=== PATIENT | female | born 1965 | race Caucasian/White ===

== ENCOUNTER 2016-11-13 06:22 | Day surgery (SDC) | payer BC ==
[~2016-11-13 06:22] MED LIST: Lactated Ringers 1,000 ML IV SCH; Lidocaine 1%/Sod Bicarbonate in NS 8.4% 1 ML Syringe IV PRN; Sodium Chloride 0.9% 10 ML Syringe FLUSH PRN
[2016-11-13] MEDS ORDERED: Bupivacaine 0.25% 30 ML SDV ONE (07:04)
[2016-11-13] MEDS ORDERED: Lidocaine 1% 30 ML SDV ONE (07:04)
[2016-11-13 08:20] VITALS: BP 98/45
--- NOTE | 2016-11-16 22:12 | PCM.OPNOTE ---
- General Post-Op/Procedure Note Date of Surgery/Procedure: 11/13/16 Operative Procedure(s): right long finger a1 junior release Pre Op Diagnosis: right long finger stenosing tenosynovitis Post-Op Diagnosis: Same Anesthesia Technique: Local Primary Surgeon: Derrick Spencer Multiplex Operator: Augustina Ledezma in mLs: 5 Complications: None Condition: Good
--- NOTE | 2016-11-16 22:39 | OR ---
DATE OF OPERATION: 11/13/2016 SURGEON: Derrick Spencer MD OPERATION PERFORMED: Right long finger A1 junior release. PREOPERATIVE DIAGNOSIS: Right long finger stenosing tenosynovitis. POSTOPERATIVE DIAGNOSIS: Right long finger stenosing tenosynovitis. ANESTHESIA: Local with 1% lidocaine without epinephrine and 0.25% Marcaine without epinephrine. PUBLIC POLICY ANALYST: Augustina Ledezma PA-C. ESTIMATED BLOOD LOSS: Less than 5 mL. COMPLICATIONS: None. CONDITION: Stable. ANESTHESIA: None. DESCRIPTION OF PROCEDURE: The patient was identified in the preop holding area. Proper site was marked and identified by the surgeon. The patient was taken back to the operative theater where patient underwent prepping and draping of the right upper extremity. Time-out was performed. Patient did not receive any antibiotics as is not indicated for soft tissue hand procedure. At this time, the patient's incisional area was anesthetized with 1% lidocaine without epinephrine and 0.25% Marcaine without epinephrine. An Esmarch was used as a tourniquet to forearm at this time. A transverse incision was made over the A1 junior of the right long finger. Blunt dissection was taken down to the tendon sheath. The medial lateral retractors were then placed to protect neurovascular bundles. [place] blade was used for resection of the A1 junior. The tenotomy scissors were used for further resection both proximally and distally. It was found to have adequate release both proximally and distally. The tendon showed no signs of adhesions. At this time, adequate saline was irrigated through the wound. Four- 0 nylon simple suture was used for closure of the skin. Patient tolerated the procedure well and sent to PACU in stable condition. MMODAL /[id number]
== END 2016-11-13 08:11 | disposition home or self-care (01) ==
LOC: JD.SDS 06:22
PROVIDERS: ATTEND Orthopaedic Surgery
PROC: 0LN70ZZ Release Right Hand Tendon, Open Approach (ICD-10-PCS; principal; 2016-11-13)
DX: M65.841 Other synovitis and tenosynovitis, right hand (principal); Z98.890 Other specified postprocedural states
CPT/HCPCS: 81025; 87641; J3490